=== PATIENT | female | born 1995 ===

== ENCOUNTER 2018-12-07 21:24 | Inpatient (IN) | payer OTHER ==
[2018-12-08] MEDS ORDERED: CERVIDIL VG ONE (00:19)
[2018-12-08] MEDS ORDERED: LACTATED RINGERS 1,000 ML IV SCH ×2 (01:00→12:00)
[2018-12-08 01:15] LABS: Hematocrit 37.8 % (30.3-42.9); Hemoglobin 13.3 gm/dl (10.1-14.3); Mean Corpuscular HGB Conc 35 % (30-34); Mean Corpuscular Volume 88 fl (79-97); Red Blood Count 4.32 M/mm3 (3.65-5.03)
[2018-12-08 01:25] LABS: Platelet Count 223 K/mm3 (140-440)
--- NOTE | 2018-12-08 11:26 | History and Physical Report ---
History of Present Illness Date of examination: 12/08/18 Date of admission: 12/07/18 21:24 Chief complaint: Presents for a scheduled induction of labor due to maternal obesity and elevating blood pressures. History of present illness: Late entry to care at 18 weeks, co-managed with [facility] due to maternal obesity. 2nd trimester complicated by placenta previa which has resolved. 3rd trimester complicated by labor concerns, received steriods at 34 Weeks. Past History Past Medical History: no pertinent history Social history: no significant social history, single - Obstetrical History Expected Date of Delivery: 12/12/18 Actual Gestation: 39 Week(s) 3 Day(s) : 1 Medications and Allergies Allergies Allergy/AdvReac Type Severity Reaction Status Date / Time No Known Allergies Allergy Unverified 11/02/18 16:15 Active Meds: Active Medications Lactated Ringer's (Lactated Ringers) 1,000 mls @ 125 mls/hr IV DIRECT DA Review of Systems All systems: negative Eyes: normal appearance - Vital Signs Vital signs: Vital Signs Pulse BP 91 H 108/64 12/07/18 23:16 12/07/18 23:16 Temp Pulse Resp BP Pulse Ox 97.6 F 83 110/59 12/08/18 07:19 12/08/18 07:22 12/08/18 07:22 - Physical Exam Breasts: Positive: normal Cardiovascular: Regular rate Lungs: Positive: Clear to auscultation, Normal air movement Abdomen: Positive: normal appearance, soft, normal bowel sounds Genitourinary (Female): Positive: normal external genitalia, normal perenium Uterus: Positive: enlarged Extremities: Positive: normal - Obstetrical FHR: category 1 Cervical Dilatation: 3 (Vtx, Intact) Cervical Effacement Percentage: 80 Uterine Contraction Pattern: Irregular Uterine Tone Measurement Phase: Resting Uterine Contraction Intensity: Mild Results Result Diagrams: 12/08/18 00:05 Abnormal lab results 12/08/18 Range/Units 00:05 WBC 13.5 H (4.5-11.0) K/mm3 MCHC 35 H (30-34) % All other labs normal. Assessment and Plan A: IUP @ 39 3/7 Weeks Category I Tracing Maternal obesity GBS Negative P: Admit to L&D per Routine Orders Pull Cervidil Start Pitocin Augmentation
[2018-12-08] MEDS ORDERED: STADOL IV PRN (11:29)
[2018-12-08] MEDS ORDERED: BRETHINE IVP PRN (11:29)
[2018-12-08] MEDS ORDERED: NARCAN 0.4 MG/1 ML IV PRN ×2 (11:29→20:01)
[2018-12-08] MEDS ORDERED: MINERAL OIL PO PRN (11:29)
[2018-12-08] MEDS ORDERED: BRETHINE SUB-Q PRN (11:29)
[2018-12-08] MEDS ORDERED: ZOFRAN IV PRN ×2 (11:29→20:01)
[2018-12-08] MEDS ORDERED: XYLOCAINE 2% INFILTRATI ONE (11:29)
[2018-12-08] MEDS ORDERED: PITOCin/NS 20 UNIT/1000ML DRIP 20 UNITS/1,000 ML BAG IV SCH ×2 (12:00→21:00)
[2018-12-08] MEDS ORDERED: PITOCin/NS 30 UNIT/500ML 30 UNITS/500 ML BAG IV SCH (12:00)
--- NOTE | 2018-12-08 12:47 | Progress Note ---
Assessment and Plan A: IUP @ 39 3/7 Weeks Category I Tracing Maternal obesity GBS Negative P: AROM Internals X 2 Continue Pitocin Augmentation Subjective - Subjective Date of service: 12/08/18 Interval history: Late entry to care at 18 weeks, co-managed with [facility] due to maternal obesity. 2nd trimester complicated by placenta previa which has resolved. 3rd trimester complicated by labor concerns, received steriods at 34 Weeks. Patient reports: movement normal, contractions Objective - Vital Signs Vital Signs: Vital Signs - 12hr 12/08/18 12/08/18 12/08/18 01:06 03:48 05:26 Temperature 98.2 F Pulse Rate 90 90 Blood Pressure 130/68 128/71 12/08/18 12/08/18 12/08/18 07:19 07:22 11:21 Temperature 97.6 F Pulse Rate 83 89 Blood Pressure 110/59 116/60 12/08/18 11:22 Temperature 97.5 F L Pulse Rate Blood Pressure - Exam Breasts: normal Cardiovascular: Regular rate Lungs: Clear to auscultation, Normal air movement Abdomen: Present: normal appearance, soft Uterus: Present: normal, firm, fundal height above umbilicus FHR: category 1 Uterine Contraction Monitor Mode: Internal Cervical Dilatation: 3 (large amount of clear fluid upon AROM at 1241) Cervical Effacement Percentage: 80 station: -2 Uterine Contraction Pattern: Irregular Uterine Tone Measurement Phase: Resting Uterine Contraction Intensity: Moderate Extremities: normal - Labs Labs: Abnormal Labs 12/08/18 00:05 WBC 13.5 H MCHC 35 H Laboratory Results - last 24 hr 12/08/18 12/08/18 12/08/18 00:05 00:05 00:05 WBC 13.5 H RBC 4.32 Hgb 13.3 Hct 37.8 MCV 88 MCH 31 MCHC 35 H RDW 14.0 Plt Count 223 RPR Nonreactive Blood Type AB POSITIVE Antibody Screen Negative
[2018-12-08] MEDS ORDERED: NARCAN 2 MG/2 ML IV PRN (16:15)
--- NOTE | 2018-12-08 16:15 | Anesthesia Consultation ---
Anesthesia Consult and Med Hx Date of service: 12/08/18 - Airway Anesthetic Teeth Evaluation: Good ROM Head & Neck: Adequate Mental/Hyoid Distance: Adequate Mallampati Class: Class I - Pulmonary Exam CTA: Yes - Cardiac Exam Cardiac Exam: RRR - Pre-Operative Health Status ASA Pre-Surgery Classification: ASA3 Proposed Anesthetic Plan: Epidural - Pulmonary Hx Smoking: No Hx Asthma: No Hx Respiratory Symptoms: No SOB: No COPD: No Home Oxygen Therapy: No Hx Pneumonia: No Hx Sleep Apnea: No - Cardiovascular System Hx Hypertension: No Hx Coronary Artery Disease: No Hx Heart Attack/AMI: No Hx Angina: No Hx Percutaneous Transluminal Coronary Angioplasty (PTCA): No Hx Cardia Arrhythmia: No Hx Pacemaker: No Hx Internal Defibrillator: No Hx Valvular Heart Disease: No Hx Heart Murmur: No Hx Peripheral Vascular Disease: No - Central Nervous System Hx Neuromuscular Disorder: No Hx Seizures: No CVA: No Hx Back Pain: No Hx Psychiatric Problems: No - Gastrointestinal Hx Ulcer: No Hx Gastroesophageal Reflux Disease: No - Endocrine Hx Renal Disease: No Hx End Stage Renal Disease: No Hx Cirrhosis: No Hx Liver Disease: No Hx Insulin Dependent Diabetes: No Hx Non-Insulin Dependent Diabetes: No Hx Thyroid Disease: No Hx Hypothyroidism: No Hx Hyperthyroidism: No - Hematic Hx Anemia: No Hx Sickle Cell Disease: No - Other Systems Hx Alcohol Use: No Hx Substance Use: No Hx Cancer: No Hx Obesity: Yes - Additional Comments Anesthesia Medical History Comments: none
[2018-12-08] MEDS ORDERED: fentaNYL-BUPIV 2 MCG/ML-0.125% 200 MCG/100 ML BAG EPIDURAL SCH (17:00)
--- NOTE | 2018-12-08 17:52 | Progress Note ---
Assessment and Plan A: IUP @ 39 3/7 Weeks Category II Tracing Maternal obesity GBS Negative P: Note: upon arrival to L&D; observed that patient had been having multiple late and varabile decels x 3hours. No notification from RNs or L&D staff. Pitocin discontinued. Dr. Avelar notified of Category II Tracing. Dr. Avelar en route to preform primary . Discussed distress with patient and explained the need for delivery by . Patient agrees with the plan of care. Will proceed with delivery by . Subjective - Subjective Date of service: 12/08/18 Interval history: Late entry to care at 18 weeks, co-managed with [facility] due to maternal obesity. 2nd trimester complicated by placenta previa which has resolved. 3rd trimester complicated by labor concerns, received steriods at 34 Weeks. Patient reports: movement normal, contractions, other (complains of lower abd pain under epidural anesthesia) Objective - Vital Signs Vital Signs: Vital Signs - 12hr 12/08/18 12/08/18 12/08/18 07:19 07:22 11:21 Temperature 97.6 F Pulse Rate 83 89 Blood Pressure 110/59 116/60 12/08/18 12/08/18 12/08/18 11:22 15:51 15:53 Temperature 97.5 F L Pulse Rate 88 98 H Blood Pressure 138/85 140/82 12/08/18 12/08/18 12/08/18 15:54 15:56 15:58 Temperature Pulse Rate 85 98 H 110 H Blood Pressure 139/78 144/83 142/87 12/08/18 12/08/18 12/08/18 16:00 16:03 16:05 Temperature Pulse Rate 90 96 H 103 H Blood Pressure 152/97 133/83 120/77 12/08/18 12/08/18 12/08/18 16:07 16:08 16:26 Temperature Pulse Rate 98 H 100 H 96 H Blood Pressure 120/75 117/65 131/73 12/08/18 12/08/18 12/08/18 16:42 16:56 17:11 Temperature Pulse Rate 106 H 100 H 93 H Blood Pressure 125/83 152/93 140/72 - Exam Breasts: normal Cardiovascular: Regular rate Lungs: Clear to auscultation, Normal air movement Abdomen: Present: normal appearance, soft, normal bowel sounds Uterus: Present: normal, firm, fundal height above umbilicus FHR: category 2 FHR comments: FHR: 130s, moderate varability, -accels, +multiple varable and late decels Uterine Contraction Monitor Mode: Internal Cervical Dilatation: 5 Cervical Effacement Percentage: 80 station: -2 Extremities: normal - Labs Labs: Abnormal Labs 12/08/18 00:05 WBC 13.5 H MCHC 35 H Laboratory Results - last 24 hr 12/08/18 12/08/18 12/08/18 00:05 00:05 00:05 WBC 13.5 H RBC 4.32 Hgb 13.3 Hct 37.8 MCV 88 MCH 31 MCHC 35 H RDW 14.0 Plt Count 223 RPR Nonreactive Blood Type AB POSITIVE Antibody Screen Negative
[2018-12-08] MEDS ORDERED: PEPCID IV ONE (17:53)
[2018-12-08] MEDS ORDERED: BICITRA PO ONE (17:53)
[2018-12-08] MEDS ORDERED: REGLAN IV ONE (17:53)
--- NOTE | 2018-12-08 18:25 | Progress Note ---
Assessment and Plan - Patient Problems (1) 39 weeks gestation of Current Visit: Yes Status: Acute (2) Active labor Current Visit: Yes Status: Acute (3) Non-reassuring cardiotocographic tracing Current Visit: Yes Status: Acute Plan to address problem: Patient was counselled for cesarian section. Risks and benefits were discussed with her such as infection, hemorrhage requiring blood transfusion, injury to the bowel, bladder and blood vessels. The patient expressed understanding, her questions were answered, she gave her informed consent. Anesthesia has been notified. monitoring. IV bolus. Keep NPO Subjective - Subjective Date of service: 12/08/18 Principal diagnosis: SIUP at 39 weeks and 3 days gestation in active labor. Interval history: Patient is a 23 year old at 39 weeks and 3 days gestation who was admitted for labor induction this AM. She was augmented with pitocin. She progressed to 5 cm at 5 PM. The tonal regulator came in to evaluate the patient and she found that the patient has been having multiple variables for 3 hours which she was not notified about. Exam: 5 cm/90%/-1. Pitocin was discontinued and intrauterine rescussitation was started with left lateral positioning, Oxygen via face mask and IV bolus. I was called in to evaluate the patient. I found her lying in bed comfortably with epidural in place, toco: Q3 mins, tracing CAT2. Patient reports: movement normal, contractions, other (complains of lower abd pain under epidural anesthesia) Objective - Vital Signs Vital Signs: Vital Signs - 12hr 12/08/18 12/08/18 12/08/18 07:19 07:22 11:21 Temperature 97.6 F Pulse Rate 83 89 Blood Pressure 110/59 116/60 12/08/18 12/08/18 12/08/18 11:22 15:51 15:53 Temperature 97.5 F L Pulse Rate 88 98 H Blood Pressure 138/85 140/82 12/08/18 12/08/18 12/08/18 15:54 15:56 15:58 Temperature Pulse Rate 85 98 H 110 H Blood Pressure 139/78 144/83 142/87 12/08/18 12/08/18 12/08/18 16:00 16:03 16:05 Temperature Pulse Rate 90 96 H 103 H Blood Pressure 152/97 133/83 120/77 01/12/08/18 12/08/18 16:07 16:08 16:26 Temperature Pulse Rate 98 H 100 H 96 H Blood Pressure 120/75 117/65 131/73 12/08/18 12/08/18 12/08/18 16:42 16:56 17:11 Temperature Pulse Rate 106 H 100 H 93 H Blood Pressure 125/83 152/93 140/72 12/08/18 12/08/18 12/08/18 17:45 17:57 18:11 Temperature Pulse Rate 101 H 100 H 118 H Blood Pressure 131/75 126/63 118/57 - Exam Cardiovascular: Normal S1, Normal S2 Lungs: Clear to auscultation Vulva: both: normal FHR: category 2 Cervical Dilatation: 5 Cervical Effacement Percentage: 90 station: -1 Uterine Contraction Pattern: Regular Uterine Contraction Intensity: Strong/Firm Deep Tendon Reflex Grade: Normal +2 - Labs Labs: Abnormal Labs 12/08/18 00:05 WBC 13.5 H MCHC 35 H Laboratory Results - last 24 hr 12/08/18 12/08/18 12/08/18 00:05 00:05 00:05 WBC 13.5 H RBC 4.32 Hgb 13.3 Hct 37.8 MCV 88 MCH 31 MCHC 35 H RDW 14.0 Plt Count 223 RPR Nonreactive Blood Type AB POSITIVE Antibody Screen Negative - Results US- obstetric: report reviewed
[2018-12-08] MEDS ORDERED: WATER FOR IRRIG STERILE IR ONE (18:30)
[2018-12-08] MEDS ORDERED: NACL 0.9% IR ONE (18:30)
[2018-12-08] MEDS ORDERED: METHERGINE IM ONE (19:13)
[2018-12-08] MEDS ORDERED: TUCKS PAD TP PRN (20:01)
[2018-12-08] MEDS ORDERED: MILK OF MAGNESIA PO PRN (20:01)
[2018-12-08] MEDS ORDERED: TYLENOL PO PRN (20:01)
[2018-12-08] MEDS ORDERED: LANSINOH TP PRN (20:01)
[2018-12-08] MEDS ORDERED: TORADOL IV PRN ×2 (20:01)
[2018-12-08] MEDS ORDERED: SENOKOT PO PRN (20:01)
[2018-12-08] MEDS ORDERED: MORPHINE IV PRN ×2 (20:01)
[2018-12-08] MEDS ORDERED: MYLICON PO PRN (20:01)
--- NOTE | 2018-12-08 20:09 | Operative Report ---
Operative Report Operative Report: Preoperative diagnosis 1. SIUP at 39 weeks and 3 days gestation in active labor. 2. Nonreassuring tracing. 3. Morbid obesity. Postoperative diagnosis: Same. Procedure: Primary low-transverse section. Surgeon: Dr. Avelar Java Security Architect: none Anesthesia: epidural. IVF: RL 1200 cc. EBL: 400 cc Urine: 200 cc clear Complications: Intraoperative uterine atony responsive to IV Pitocin and IM methergine. Intraoperative findings: 1. A female infant found in an JAQUELINE position, delivered at 7:06 PM, Apgars 8 at 1 minute and 9 at 5 minutes, weight 7 lbs. 15 oz. 2. Normal fallopian tubes and ovaries bilaterally. Procedure details: Risks, benefits, and alternatives of the procedure were discussed in detail with the patient which included but not limited to the risk of infection, hemorrhage requiring blood transfusion, injury to the bowel or bladder and blood vessels. The patient expressed understanding, her questions were answered, and she gave informed consent. The patient was taken to the operating room with an IV fluid infusing Ringers lactate. In the operating room, she was placed in a sitting position and given spinal anesthesia. Then, she was placed in a dorsal supine position with a leftward tilt. Omrrissey catheter and Venodyne boots were placed. The abdomen was washed and she was prepared and draped in usual sterile fashion. After confirming adequate epidural anesthesia, the Pfannenstiel skin incision was made in the lower abdomen about 2 cm above the pubic symphysis using the scalpel. This incision was carried down to the underlying fascia using the Bovie. The fascia was opened bilaterally in a curvilinear fashion using the Bovie. 2 straight Kocker clamps were used to grasp the upper edge of the fascia from which the underlying rectus abdominis muscles was dissected off using the Bovie. A similar procedure was done with the lower edge of the fascia to dissect the underlying rectus abdominis muscle. The muscle was bluntly from the midline by pulling. The parietal peritoneum was grasped with 2 hemostat clamps and entered sharply using Metzenbaum scissors. A quick survey of the anatomy revealed a gravid uterus, normal fallopian tubes and ovaries bilaterally. A bladder flap was created. Jose Alejandro'O retractor was placed in the incision for proper visualization. A low transverse incision was made in the lower uterine segment using the scalpel and extended bilaterally in a curvilinear fashion using bandage scissors. There was scant amount of clear amniotic fluid as the membranes have been ruptured during the labor. The was found in an JAQUELINE position, the head was delivered atraumatically followed by the delivery of the shoulders and the rest of the body at 7:06 PM. The cord was clamped 2 and cut and the was handed off to the waiting concreter. The was a female, Apgars were 8 at 1 minute and 9 at 5 minutes, weight was 7 pounds and 15 ounces. Cord blood was collected. The placenta was delivered manually and it was complete with a three-vessel cord. The uterine cavity was cleaned of clots and debris using dry lap sponges. The uterine incision was repaired in a running locked fashion using 0 Vicryl sutures. A second layer of imbrication was placed. The gutters were cleaned of clots and debris using dry lap sponges. After confirming adequate hemostasis, the instruments were removed from the abdominal cavity. The rectus muscle was reapproximated in an interrupted fashion using 0 Vicryl sutures. The fascia was closed in a running fashion using 0 Vicryl sutures. The subcutaneous adipose tissues were closed with vicryl. The skin was closed with debbi. Sterile dressing was placed. The counts of laps, needles, sponges, and instruments were correct 2. The patient tolerated the procedure well, she was taken to the recovery room in a stable condition.
[2018-12-08] MEDS ORDERED: SODIUM CHLORIDE FLUSH SYRINGE 10 ML IV NR (21:00)
--- NOTE | 2018-12-08 23:35 | Progress Note ---
Subjective Date of service: 12/08/18 (block note) Principal diagnosis: SIUP at 39 weeks and 3 days gestation in active labor. Interval history: 23 y.o female for c section. Surgeon requests block for postoperative analgesia. Informed consent obtained. Bilateral distal TAP blocks performed un kiarra clean conditions with chlorhexidine prep. 30 ml 0.25% bupivacaine with 4 mg decadron placed in each side via 21ga b bevel needle under ultrasound guidance. Pt tolerated well. Objective - Constitutional Vitals: Vital Signs - 12hr 12/08/18 12/08/18 12/08/18 15:51 15:53 15:54 Temperature Pulse Rate 88 98 H 85 Respiratory Rate Blood Pressure 138/85 140/82 139/78 Blood Pressure [Left] O2 Sat by Pulse Oximetry 12/08/18 12/08/18 12/08/18 15:56 15:58 16:00 Temperature Pulse Rate 98 H 110 H 90 Respiratory Rate Blood Pressure 144/83 142/87 152/97 Blood Pressure [Left] O2 Sat by Pulse Oximetry 12/08/18 12/08/18 12/08/18 16:03 16:05 16:07 Temperature Pulse Rate 96 H 103 H 98 H Respiratory Rate Blood Pressure 133/83 120/77 120/75 Blood Pressure [Left] O2 Sat by Pulse Oximetry 12/08/18 12/08/18 12/08/18 16:08 16:26 16:42 Temperature Pulse Rate 100 H 96 H 106 H Respiratory Rate Blood Pressure 117/65 131/73 125/83 Blood Pressure [Left] O2 Sat by Pulse Oximetry 12/08/18 12/08/18 12/08/18 16:56 17:11 17:45 Temperature Pulse Rate 100 H 93 H 101 H Respiratory Rate Blood Pressure 152/93 140/72 131/75 Blood Pressure [Left] O2 Sat by Pulse Oximetry 12/08/18 12/08/18 12/08/18 17:57 18:11 20:30 Temperature 97.7 F Pulse Rate 100 H 118 H 92 H Respiratory 10 L Rate Blood Pressure 126/63 118/57 110/63 Blood Pressure [Left] O2 Sat by Pulse 99 Oximetry 12/08/18 12/08/18 12/08/18 20:36 20:40 20:55 Temperature Pulse Rate 86 72 71 Respiratory 19 19 15 Rate Blood Pressure 103/57 113/60 106/70 Blood Pressure [Left] O2 Sat by Pulse 100 99 97 Oximetry 12/08/18 12/08/18 12/08/18 21:10 21:25 21:36 Temperature 98.7 F Pulse Rate 95 H 82 81 Respiratory 20 17 21 Rate Blood Pressure 126/75 116/74 123/64 Blood Pressure [Left] O2 Sat by Pulse 96 97 96 Oximetry 12/08/18 22:05 Temperature 99.0 F Pulse Rate 84 Respiratory 20 Rate Blood Pressure Blood Pressure 113/61 [Left] O2 Sat by Pulse Oximetry - Labs CBC & Chem 7: 12/08/18 00:05 Labs: Abnormal lab results 12/08/18 Range/Units 00:05 WBC 13.5 H (4.5-11.0) K/mm3 MCHC 35 H (30-34) %
[2018-12-09] MEDS ORDERED: D5LR 1,000 ML IV SCH (04:00)
[2018-12-09 08:21] LABS: Hematocrit 36.4 % (30.3-42.9); Hemoglobin 12.3 gm/dl (10.1-14.3)
--- NOTE | 2018-12-09 10:09 | Progress Note ---
Assessment and Plan A: POD #1 Stable P: Follow Routine PostOp Orders Advance Diet with +Flatus Encourage increased ambulation Subjective - Subjective Date of service: 12/09/18 Principal diagnosis: SIUP at 39 weeks and 3 days gestation in active labor. Interval history: Late entry to care at 18 weeks, co-managed with [facility] due to maternal obesity. 2nd trimester complicated by placenta previa which has resolved. 3rd t rimester complicated by labor concerns, received steriods at 34 Weeks. Patient reports: appetite normal, voiding normally, pain well controlled, ambulating normally [place]: doing well Objective - Vital Signs Latest vital signs: Vital Signs Temp Pulse Resp BP BP Pulse Ox 12/09/18 08:21 98.1 F 87 20 107/69 97 12/09/18 03:00 98.8 F 79 20 124/65 12/09/18 00:14 20 12/08/18 22:05 99.0 F 84 20 113/61 12/08/18 21:36 98.7 F 81 21 123/64 96 12/08/18 21:25 82 17 116/74 97 12/08/18 21:10 95 H 20 126/75 96 12/08/18 20:55 71 15 106/70 97 12/08/18 20:40 72 19 113/60 99 12/08/18 20:36 86 19 103/57 100 12/08/18 20:30 97.7 F 92 H 10 L 110/63 99 12/08/18 18:11 118 H 118/57 12/08/18 17:57 100 H 126/63 12/08/18 17:45 101 H 131/75 12/08/18 17:11 93 H 140/72 12/08/18 16:56 100 H 152/93 12/08/18 16:42 106 H 125/83 12/08/18 16:26 96 H 131/73 12/08/18 16:08 100 H 117/65 12/08/18 16:07 98 H 120/75 12/08/18 16:05 103 H 120/77 12/08/18 16:03 96 H 133/83 12/08/18 16:00 90 152/97 12/08/18 15:58 110 H 142/87 12/08/18 15:56 98 H 144/83 12/08/18 15:54 85 139/78 12/08/18 15:53 98 H 140/82 12/08/18 15:51 88 138/85 12/08/18 11:22 97.5 F L 12/08/18 11:21 89 116/60 Intake and Output 12/08/18 12/09/18 12/09/18 22:59 06:59 14:59 Intake Total 1332.867 360 240 Output Total 500 1100 600 Balance 832.867 -740 -360 Intake: IV 1332.867 PITOCin/NS 30 UNIT/500ML 32.867 30 units In 500 ml @ 4 mls/hr IV TITR DA Rx#: [id number] Intake, Free Water 360 240 Output: Urine 500 1100 600 Indwelling Catheter 1100 600 Uretheral ([place]) 200 Other: Total, Output Amount 400 600 Estimated Blood Loss 400 - Exam Breasts: Present: normal Cardiovascular: Present: Regular rate Lungs: Present: Clear to auscultation, Normal air movement Abdomen: Present: normal appearance, soft, normal bowel sounds Uterus: Present: normal, firm, fundal height below umbilicus Extremities: Present: normal Incision: Present: normal, dry, dressed
[2018-12-09] MEDS: PRENATAL VITAMIN PO SCH (10:22)
[2018-12-09] MEDS: FEOSOL PO SCH (10:22)
[2018-12-09] MEDS: IBUPROFEN PO PRN (17:07)
[2018-12-09] MEDS: PERCOCET 5/325 PO PRN (17:07)
[2018-12-10] MEDS: PRENATAL VITAMIN PO SCH (10:08)
[2018-12-10] MEDS: IBUPROFEN PO PRN ×2 (10:08→20:39)
--- NOTE | 2018-12-10 10:22 | Progress Note ---
Assessment and Plan A: POD #2 Stable P: Follow Routine PostOp Orders Encourage increased ambulation Discharge home today pending peds Subjective - Subjective Date of service: 12/10/18 Principal diagnosis: POD#2 s/p Primary c/s Interval history: See H&P and operative note Patient reports: appetite normal, voiding normally, pain well controlled, flatus, ambulating normally [place]: doing well, nursing well Objective - Vital Signs Latest vital signs: Vital Signs Temp Pulse Resp BP BP Pulse Ox 12/10/18 08:54 98 F 81 20 112/66 12/10/18 01:18 98.1 F 86 20 115/77 12/09/18 18:02 98.3 F 112 H 20 117/81 98 12/09/18 17:07 20 12/09/18 13:27 98.4 F 97 H 18 106/61 99 12/09/18 10:23 20 Intake and Output 12/09/18 12/10/18 12/10/18 23:59 07:59 15:59 Intake Total 840 240 120 Output Total 250 Balance 590 240 120 Intake: Oral 360 120 Intake, Free Water 480 240 Output: Urine 250 Void 250 Other: Total, Intake Amount 360 120 Total, Output Amount 250 # Voids Void 2 1 - Exam Breasts: Present: normal, Cardiovascular: Present: Regular rate, Normal S1, Normal S2, No murmurs Lungs: Present: Clear to auscultation, Normal air movement Abdomen: Present: normal appearance, soft, tenderness (as expected post-op), normal bowel sounds. Absent: distention Vulva: both: normal Uterus: Present: firm, fundal height at umbilicus Extremities: Present: normal, edema (1+) Deep Tendon Reflex Grade: Normal +2 Incision: Present: normal (LTI clsed with debbi, CDI), dry, intact
--- NOTE | 2018-12-10 10:24 | Discharge Summary ---
Providers - Providers Date of Admission: 12/07/18 21:24 Date of discharge: 12/10/18 Attending physician: MICA PALAFOX Primary care physician: MICA PALAFOX Hospitalization Reason for admission: section, IUP at term Delivery: Procedure: primary low transverse Procedure details: See operative note Other procedures: none complications: none Discharge diagnosis: IUP at term delivered [place] baby: female Condition at discharge: Good Disposition: DC- TO HOME OR SELFCARE Plan - Discharge Medications Prescriptions: Ibuprofen [Motrin] 800 mg PO Q8HR PRN #30 tablet PRN Reason: Pain, Moderate (4-6) oxyCODONE /ACETAMINOPHEN [Percocet 5/325] 1 tab PO Q4HR #14 tab - Provider Discharge Summary Activity: routine, no sex for 6 weeks, no heavy lifting 4 weeks, no strenuous exercise Diet: routine Instructions: routine Additional instructions: [] Smoking cessation referral if applicable(refer to patient education folder for contact #) [] Refer to [facility]'s [facility] Booklet Call your doctor immediately for: * Fever > 100.5 * Heavy vaginal bleeding ( >1 pad per hour) * Severe persistent headache * Shortness of breath * Reddened, hot, painful area to leg or breast * Drainage or odor from incision. * Keep incision clean and dry at all times and follow doctor's instructions regarding bathing/showering - Follow up plan Follow up: MICA PALAFOX [Primary Care Provider] - 7 Days
[2018-12-10] MEDS: FEOSOL PO SCH (12:04)
--- NOTE | 2018-12-11 10:53 | Progress Note ---
Assessment and Plan A: /postop day 3 S/P primary low transverse section. Anemia. P: Discharge patient home today. discharge instructions and warning signs discussed with pt. in detail. Advised pt. to avoid driving, lifting and heavy housework, intercourse, stair climbing and tub baths (may take showers). Advised patient to continue her vitamins and iron supplements. Advised patient to call [facility] and schedule a follow up visit for incision check in 1 week. Pt. voiced understanding of all instructions. has left Rx for patient on her chart; advised pt. to get these filled at hospital discharge. Subjective - Subjective Date of service: 12/11/18 Principal diagnosis: /postop day 3 S/P primary LTCS Interval history: /postop day 3 S/P primary low transverse section. Doing well and desires discharge today. Reports minimal lochia. Voiding without difficulty. Ambulating well. Tolerating a regular diet without nausea or vomiting. Passing gas. Patient denies headache, chest pain, cough, shortness of breath, dizziness, abdominal pain, leg pain, heavy bleeding, or symptoms of depression. Patient reports: appetite normal, voiding normally, pain well controlled, flatus, ambulating normally, no dizzy ambulation, no nauseated : doing well Objective - Vital Signs Latest vital signs: Vital Signs Temp Pulse Resp BP BP Pulse Ox 12/11/18 08:32 98.6 F 75 18 110/60 96 12/11/18 08:12 98.6 F 81 18 110/60 97 12/10/18 23:13 98.3 F 102 H 18 118/72 95 12/10/18 16:10 98.2 F 87 20 115/65 Intake and Output 12/10/18 12/11/18 12/11/18 23:59 07:59 15:59 Intake Total 120 360 600 Balance 120 360 600 Intake: Oral 120 240 Intake, Free Water 360 360 Other: Total, Intake Amount 120 240 # Voids Void 1 2 1 - Exam Cardiovascular: Present: Regular rate, Normal S1, Normal S2 Lungs: Present: Clear to auscultation Abdomen: Present: normal appearance, soft, normal bowel sounds. Absent: distention, tenderness, guarding, rigidity Uterus: Present: normal, firm, fundal height below umbilicus. Absent: bogginess, tenderness Extremities: Present: normal, edema (mild pedal edema bilaterally). Absent: tenderness Incision: Present: normal, dry, intact
--- NOTE | 2018-12-11 10:56 | Discharge Summary ---
Providers - Providers Date of Admission: 12/07/18 21:24 Date of discharge: 12/11/18 Attending physician: MICA PALAFOX Primary care physician: MICA PALAFOX Hospitalization Reason for admission: induction of labor Delivery: Procedure: primary low transverse Incision: normal, dry, intact Other procedures: none complications: none Discharge diagnosis: IUP at term delivered [place] baby: female Pertinent studies: Labs Hospital course: Normal hospital course. Condition at discharge: Good Disposition: DC-01 TO HOME OR SELFCARE - Discharge Diagnoses (1) Term delivered Status: Acute Plan - Discharge Medications Prescriptions: Ibuprofen [Motrin] 800 mg PO Q8HR PRN #30 tablet PRN Reason: Pain, Moderate (4-6) oxyCODONE /ACETAMINOPHEN [Percocet 5/325] 1 tab PO Q4HR #14 tab - Provider Discharge Summary Activity: routine, no sex for 6 weeks, no heavy lifting 4 weeks, no strenuous exercise Diet: routine Instructions: routine Additional instructions: Call your doctor immediately for: * Fever > 100.5 * Heavy vaginal bleeding ( >1 pad per hour) * Severe persistent headache * Shortness of breath * Reddened, hot, painful area to leg or breast * Drainage or odor from incision. * Keep incision clean and dry at all times and follow doctor's instructions regarding bathing/showering - Follow up plan Follow up: MICA PALAFOX [Primary Care Provider] - 7 Days
[2018-12-11] MEDS: PRENATAL VITAMIN PO SCH (11:00)
[2018-12-11] MEDS: FEOSOL PO SCH (11:00)
[2018-12-11] MEDS: IBUPROFEN PO PRN (11:25)
[2018-12-11] MEDS: PERCOCET 5/325 PO PRN (11:25)
[2018-12-11 17:12] VITALS: BP 121/79
== END 2018-12-11 16:55 | disposition home or self-care (01) | DRG 766 ==
LOC: LD 21:24 → OB 12-08 22:18
PROVIDERS: ADMIT Obstetrics & Gynecology; ATTEND Obstetrics & Gynecology
PROC: 10D00Z1 Extraction of Products of Conception, Low, Open Approach (ICD-10-PCS; principal; 2018-12-08)
PROC: 3E0T3BZ Introduction of Anesthetic Agent into Peripheral Nerves and Plexi, Percutaneous Approach (ICD-10-PCS; 2018-12-08)
PROC: 3E0T33Z Introduction of Anti-inflammatory into Peripheral Nerves and Plexi, Percutaneous Approach (ICD-10-PCS; 2018-12-08)
DX: O99.214 Obesity complicating childbirth (principal); E66.01 Morbid (severe) obesity due to excess calories; O76 Abnormality in fetal heart rate and rhythm complicating labor and delivery; O62.2 Other uterine inertia; O99.02 Anemia complicating childbirth; D64.9 Anemia, unspecified; Z3A.39 39 weeks gestation of pregnancy; Z37.0 Single live birth; Z71.3 Dietary counseling and surveillance
CPT/HCPCS: 36415; 85014; 85018; 85027; 86592; 86850; 86900; 86901; G0378; J0595; J1885; J2210; J2590; J2765; J7120